=== PATIENT | female | born 1995 | race Caucasian/White ===

== ENCOUNTER 2017-11-25 16:46 | Emergency (ER) | payer MEDICAID, OTHER ==
[~2017-11-25] VITALS: Ht 157.5 cm; Wt 78.5 kg
[~2017-11-25 16:46] MED LIST: ALBU0.0912 INH; FOLI1TAB19 PO; PREN-385 PO
[2017-11-25 17:19] VITALS: BP 110/66
--- NOTE | 2017-11-25 20:17 | NUR ---
TO ER BED2
--- NOTE | 2017-11-25 20:20 | NUR ---
22/ CAME IN W C/O 04/30 SHARP RUQ PAIN RADAITING TO EPIGASTRIC, ACUTE ONSET, CONSTANT X 1400 TODAY. ABD SOFT, ROUND, +TENDERNESS TO RUQ. DENIES SOB/COUGH/CP, FEVER/CHILLS, N/V/D, DENIES HEMATURIA/DYSURIA. PMH: ASTHMA, RX: ALBUTEROL INH, TOOK TYLENOL AT 1400 TODAY WITHOUT RELIEF OF SX
[2017-11-25] MEDS ORDERED: KETOROLAC 30 MG/ML VIAL IVP ONE (21:00)
[2017-11-25] MEDS ORDERED: NACL 0.9% 1,000 ML IV ONE (21:00)
[2017-11-25] MEDS ORDERED: ONDANSETRON 4 MG/2 ML VIAL IVP ONE (21:00)
[2017-11-25 21:43] LABS: BASOPHILS # (AUTO) 0.2 K/uL (0.00-0.22); BASOPHILS % (AUTO) 2.1 % (0.0-2.0); EOSINOPHILS # (AUTO) 0.1 K/uL (0-0.4); EOSINOPHILS % (AUTO) 1.2 % (0.0-4.0); HEMATOCRIT 39.2 % (36-48); HEMOGLOBIN 13.2 g/dL (12.0-16.0); LYMPHOCYTES # (AUTO) 2.2 K/uL (2.5-16.5); LYMPHOCYTES % (AUTO) 21.6 % (20.5-51.1); MEAN CORPUSCULAR HEMOGLOBIN 31 pg (27-31); MEAN CORPUSCULAR HGB CONC 34 g/dL (33-37); MEAN CORPUSCULAR VOLUME 91 fL (80-94); MONOCYTES # (AUTO) 0.9 K/uL (0.8-1.0); MONOCYTES % (AUTO) 8.6 % (1.7-9.3); NEUTROPHILS # (AUTO) 6.8 K/uL (1.8-7.7); NEUTROPHILS % (AUTO) 66.5 % (42.2-75.2); PLATELET COUNT (AUTO) 276 K/uL (140-450); RED BLOOD CELL COUNT(AUTO) 4.31 MIL/uL (4.20-5.40); RED CELL DISTRIBUTION WIDTH 12.5 % (11.6-13.7); WHITE BLOOD COUNT (AUTO) 10.2 K/uL (4.8-10.8)
[2017-11-25 22:07] LABS: ALBUMIN 3.9 g/dL (3.4-5.0); ANION GAP 13.8 (8-16); CARBON DIOXIDE 24.1 mmol/L (21-32); CREATININE 0.5 mg/dL (0.6-1.3); POTASSIUM 3.9 mmol/L (3.5-5.1); TOTAL BILIRUBIN 0.2 mg/dL (0.0-1.0)
--- NOTE | 2017-11-25 22:24 | NUR ---
Patient appears to be resting comfortably in bed. Vital Signs within normal limits. Respirations even and unlabored.
--- NOTE | 2017-11-25 22:53 | NUR ---
Patient discharged with v/s stable. Written and verbal after care instructions given and explained. Patient alert, oriented and verbalized understanding of instructions. Ambulatory with steady gait. All questions addressed prior to discharge. ID band removed. Patient advised to follow up with PMD. Rx of ZOFRAN ODT AND TRAMADOL given. Patient educated on indication of medication including possible reaction and side effects. Opportunity to ask questions provided and answered. Addendum: 11/25/17 at 2300 by [facility] IV removed, catheter intact and site benign. Applied folded 4x4 gauze and tape to stop bleeding.
[2017-11-25 23:00] VITALS: BP 138/76
--- NOTE | 2017-11-30 23:05 | NUR ---
IV NORMAL SALINE 1L END TIME 11/25/17 AT 2250
== END 2017-11-25 22:53 | disposition home or self-care (01) ==
LOC: MED 16:46
DX: I88.0 Nonspecific mesenteric lymphadenitis (principal); J45.909 Unspecified asthma, uncomplicated; Z79.899 Other long term (current) drug therapy
CPT/HCPCS: 36415; 74176; 80053; 81002; 81025; 85025; 87040; 96361; 96374; 96375; 99285; J1885; J2405; J7030

== ENCOUNTER 2018-06-05 18:42 | Emergency (ER) | payer OTHER ==
[~2018-06-05] VITALS: Ht 160 cm; Wt 77.1 kg
[2018-06-05 18:55] VITALS: BP 102/64
--- NOTE | 2018-06-05 18:58 | NUR ---
PT STABLE TO WAIT IN LOBBY, INFORMED TO NOTIFY STAFF IF CONDITION WORSENS.
--- NOTE | 2018-06-05 19:47 | NUR ---
PT WAS RECHECKED IN TRIAGE. NO NEW SYMPTOMS, NO APPARENT DISTRESS AT THIS TIME. UPDATED REGARDING WAIT TIMES
--- NOTE | 2018-06-05 20:00 | NUR ---
Eulalia walker in [facility] - 06/05/18 at 2120 by JESSIE PT WAS RECHECKED IN TRIAGE. NO NEW SYMPTOMS, NO APPARENT DISTRESS AT THIS TIME. UPDATED REGARDING WAIT TIMES
--- NOTE | 2018-06-05 20:17 | NUR ---
PT AMBULATORY TO BED 9 W/ STEADY GAIT.
[2018-06-05] MEDS ORDERED: NACL 0.9% 500 ML IV ONE (20:26)
[2018-06-05] MEDS ORDERED: ONDANSETRON 4 MG/2 ML VIAL IVP ONE (20:30)
[2018-06-05] MEDS ORDERED: KETOROLAC 30 MG/ML VIAL IVP ONE (20:30)
--- NOTE | 2018-06-05 20:30 | NUR ---
PT BIB SELF C/O VOMITNG AND DIARRHEA FOR 4 DAYS. PT DENIES BLOOD IN VOMIT OR URINE. PT HAS EPIGASTRIC PAIN WHEN VOMITING. ABD IS ROUND, SOFT, NON TENDER, HYPOACTIVE BS X4. PT IS LAYING IN BED, COMFORT NEEDS MET, WILL CONTINUE TO MONITOR. [facility]
[2018-06-05 20:54] LABS: BASOPHILS % (AUTO) 0.1 % (0.0-2.0); EOSINOPHILS % (AUTO) 0.3 % (0.0-4.0); HEMATOCRIT 40.4 % (36-48); HEMOGLOBIN 13.5 g/dL (12.0-16.0); LYMPHOCYTES # (AUTO) 1.1 K/uL (2.5-16.5); LYMPHOCYTES % (AUTO) 14.2 % (20.5-51.1); MEAN CORPUSCULAR HEMOGLOBIN 30 pg (27-31); MEAN CORPUSCULAR HGB CONC 33 g/dL (33-37); MEAN CORPUSCULAR VOLUME 91.3 fL (80-94); MONOCYTES # (AUTO) 0.3 K/uL (0.8-1.0); MONOCYTES % (AUTO) 3.5 % (1.7-9.3); NEUTROPHILS # (AUTO) 6.2 K/uL (1.8-7.7); NEUTROPHILS % (AUTO) 81.9 % (42.2-75.2); PLATELET COUNT (AUTO) 229 K/uL (140-450); RED BLOOD CELL COUNT(AUTO) 4.43 MIL/uL (4.20-5.40); RED CELL DISTRIBUTION WIDTH 12.9 % (11.6-13.7); WHITE BLOOD COUNT (AUTO) 7.5 K/uL (4.8-10.8)
--- NOTE | 2018-06-05 20:57 | NUR ---
Dr. Guardado evaluating patient at bedside.
[2018-06-05 21:10] LABS: ALBUMIN 3.9 g/dL (3.4-5.0); CARBON DIOXIDE 28.6 mmol/L (21-32); CREATININE 0.6 mg/dL (0.6-1.3); POTASSIUM 3.6 mmol/L (3.5-5.1); TOTAL BILIRUBIN 0.3 mg/dL (0.0-1.0)
[2018-06-05 21:50] VITALS: BP 98/54
== END 2018-06-05 21:50 | disposition home or self-care (01) ==
LOC: MED 18:42
DX: A08.4 Viral intestinal infection, unspecified (principal); J45.909 Unspecified asthma, uncomplicated; Z79.899 Other long term (current) drug therapy
CPT/HCPCS: 36415; 80053; 85025; 96374; 96375; 99284; J1885; J2405

== ENCOUNTER 2019-12-15 15:26 | Emergency (ER) | payer OTHER ==
--- NOTE | 2019-12-15 15:30 | NUR ---
LEFT WITHOUT BEING TRIAGED.
== END 2019-12-15 15:30 | disposition left against medical advice (07) ==
LOC: MED 15:26
DX: N64.4 Mastodynia (principal); Z53.21 Procedure and treatment not carried out due to patient leaving prior to being seen by health care provider

== ENCOUNTER 2022-06-06 10:47 | Emergency (ER) | payer OTHER ==
[~2022-06-06] VITALS: Ht 160 cm; Wt 88.5 kg
[2022-06-06 11:05] VITALS: BP 112/75
--- NOTE | 2022-06-06 12:22 | NUR ---
KELLY ELDER AT BEDSIDE FOR EVAL
[2022-06-06 13:04] LABS: BASOPHILS # (AUTO) 0.1 K/uL (0.00-0.22); BASOPHILS % (AUTO) 0.6 % (0.0-2.0); EOSINOPHILS # (AUTO) 0.1 K/uL (0-0.4); EOSINOPHILS % (AUTO) 1.1 % (0.0-4.0); HEMATOCRIT 38.8 % (36-48); HEMOGLOBIN 12.7 g/dL (12.0-16.0); LYMPHOCYTES # (AUTO) 2.1 K/uL (2.5-16.5); LYMPHOCYTES % (AUTO) 23.9 % (20.5-51.1); MEAN CORPUSCULAR HEMOGLOBIN 28 pg (27-31); MEAN CORPUSCULAR HGB CONC 33 g/dL (33-37); MEAN CORPUSCULAR VOLUME 85.3 fL (80-94); MONOCYTES # (AUTO) 0.8 K/uL (0.8-1.0); MONOCYTES % (AUTO) 9.6 % (1.7-9.3); NEUTROPHILS # (AUTO) 5.6 K/uL (1.8-7.7); NEUTROPHILS % (AUTO) 64.8 % (42.2-75.2); PLATELET COUNT (AUTO) 324 K/uL (140-450); RED BLOOD CELL COUNT(AUTO) 4.55 MIL/uL (4.20-5.40); WHITE BLOOD COUNT (AUTO) 8.6 K/uL (4.8-10.8)
--- NOTE | 2022-06-06 13:39 | NUR ---
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
[2022-06-06 14:13] LABS: ALBUMIN 4.1 g/dL (3.4-5.0); ANION GAP 13.1 (8-16); CREATININE 0.8 mg/dL (0.6-1.3); POTASSIUM 4.1 mmol/L (3.5-5.1); TOTAL BILIRUBIN 0.3 mg/dL (0.0-1.0)
--- NOTE | 2022-06-06 15:02 | NUR ---
PT NOT FOUND IN LOBBY
--- NOTE | 2022-06-06 15:25 | NUR ---
PT NOT FOUND IN LOBBY
--- NOTE | 2022-06-06 15:25 | NUR ---
PT LEFT W/O DC PAPERS
== END 2022-06-06 15:25 | disposition home or self-care (01) ==
LOC: MED 10:47
DX: R73.9 Hyperglycemia, unspecified (principal); Z20.822 Contact with and (suspected) exposure to COVID-19; R42 Dizziness and giddiness; M79.10 Myalgia, unspecified site; R53.83 Other fatigue; J45.909 Unspecified asthma, uncomplicated; Z79.899 Other long term (current) drug therapy
CPT/HCPCS: 36415; 80053; 81002; 81025; 85025; 99283

== ENCOUNTER 2022-10-19 21:59 | Emergency (ER) | payer OTHER ==
--- NOTE | 2022-10-19 22:30 | NUR ---
PATIENT CALL TO TRIAGE NO RESPONSE PATIENT LEFT WITHOUT BEING SEEN BY DR. VILLALOBOS. NO FURTHER CARE PROVIDED FOR PATIENT.
--- NOTE | 2022-10-19 22:35 | NUR ---
CALLED FOR THE SECOND TIME , NO RESPONSE
--- NOTE | 2022-10-19 22:40 | NUR ---
CALLED FOR THE THIRD TIME NO RESPONSE
== END 2022-10-19 22:30 | disposition left against medical advice (07) ==
LOC: MED 21:59
DX: N89.8 Other specified noninflammatory disorders of vagina (principal); Z53.21 Procedure and treatment not carried out due to patient leaving prior to being seen by health care provider

== ENCOUNTER 2022-10-19 23:12 | Emergency (ER) | payer OTHER ==
[~2022-10-19] VITALS: Ht 160 cm; Wt 81.6 kg
[2022-10-19 23:18] VITALS: BP 131/90
--- NOTE | 2022-10-19 23:21 | NUR ---
TO LOBBY A/W BED AMBULATORY
--- NOTE | 2022-10-20 01:07 | NUR ---
RECEIVED CALL FROM ADMITTING STAFF THAT STARTED PT LEFT FACILITY AT THIS TIME. PT LWBS BY DR. VILLALOBOS.
== END 2022-10-20 01:07 | disposition left against medical advice (07) ==
LOC: MED 23:12
DX: R51.9 Headache, unspecified (principal); R11.0 Nausea; R06.7 Sneezing; Z53.21 Procedure and treatment not carried out due to patient leaving prior to being seen by health care provider

== ENCOUNTER 2022-12-12 18:26 | Emergency (ER) | payer OTHER ==
[~2022-12-12] VITALS: Ht 160 cm; Wt 82.1 kg
[2022-12-12 19:27] VITALS: BP 120/77
--- NOTE | 2022-12-12 19:38 | NUR ---
KELLY Meeks examining patient.
[2022-12-12] MEDS ORDERED: IBUP-1842 PO (19:42)
[2022-12-12 19:56] VITALS: BP 120/77
== END 2022-12-12 19:56 | disposition home or self-care (01) ==
LOC: MED 18:26
DX: H92.01 Otalgia, right ear (principal); J45.909 Unspecified asthma, uncomplicated; Z79.899 Other long term (current) drug therapy
CPT/HCPCS: 99282

== ENCOUNTER 2023-02-01 19:17 | Emergency (ER) | payer OTHER ==
[~2023-02-01] VITALS: Ht 160 cm; Wt 86.2 kg
[~2023-02-01 19:17] MED LIST changes: +IBUP-1842 PO
[2023-02-01 19:58] VITALS: BP 120/83
--- NOTE | 2023-02-01 20:05 | NUR ---
TO LOBBY FOLLOWING TRIAGE
[2023-02-01 21:38] LABS: BASOPHILS % (AUTO) 0.4 % (0.0-2.0); EOSINOPHILS # (AUTO) 0.1 K/uL (0-0.4); EOSINOPHILS % (AUTO) 1.1 % (0.0-4.0); LYMPHOCYTES # (AUTO) 2.3 K/uL (2.5-16.5); LYMPHOCYTES % (AUTO) 25.5 % (20.5-51.1); MEAN CORPUSCULAR HEMOGLOBIN 29 pg (27-31); MEAN CORPUSCULAR HGB CONC 33 g/dL (33-37); MEAN CORPUSCULAR VOLUME 87.5 fL (80-94); MONOCYTES # (AUTO) 0.9 K/uL (0.8-1.0); MONOCYTES % (AUTO) 9.9 % (1.7-9.3); NEUTROPHILS # (AUTO) 5.6 K/uL (1.8-7.7); NEUTROPHILS % (AUTO) 63.1 % (42.2-75.2); PLATELET COUNT (AUTO) 280 K/uL (140-450); RED BLOOD CELL COUNT(AUTO) 4.81 MIL/uL (4.20-5.40); RED CELL DISTRIBUTION WIDTH 14.2 % (11.6-13.7); WHITE BLOOD COUNT (AUTO) 8.9 K/uL (4.8-10.8)
[2023-02-01 21:55] LABS: ANION GAP 12.8 (8-16); CARBON DIOXIDE 27.3 mmol/L (21-32); CREATININE 0.7 mg/dL (0.6-1.3); POTASSIUM 4.1 mmol/L (3.5-5.1); TOTAL BILIRUBIN 0.3 mg/dL (0.0-1.0)
[2023-02-01 22:30] VITALS: BP 120/83
--- NOTE | 2023-02-01 22:30 | NUR ---
Patient discharged. Written and verbal after care instructions given and explained. Patient verbalized understanding. Ambulatory with steady gait. IV band removed. All questions addressed prior to discharge. Advised to follow up with PMD.
== END 2023-02-01 22:30 | disposition home or self-care (01) ==
LOC: MED 19:17
DX: L03.114 Cellulitis of left upper limb (principal); E11.65 Type 2 diabetes mellitus with hyperglycemia; J45.909 Unspecified asthma, uncomplicated; Z79.899 Other long term (current) drug therapy; Z79.1 Long term (current) use of non-steroidal anti-inflammatories (NSAID)
CPT/HCPCS: 36415; 80053; 81025; 85025; 99283